=== PATIENT | female | born 1980 | race Caucasian/White ===

== ENCOUNTER → 2017-09-28 | Outpatient (CLI) | payer MEDICAID ==
[2017-09-28 10:17] LABS: ALT 33 U/L (9-52); AST 23 U/L (14-36); Albumin 4.2 g/dL (3.5-5.0); Alkaline Phosphatase 64 U/L (38-126); Anion Gap 9 mmol/L; Blood Urea Nitrogen 9 mg/dL (7-17); Calcium 9.3 mg/dL (8.4-10.2); Carbon Dioxide 28 mmol/L (22-30); Chloride 104 mmol/L (98-107); Cholesterol 222 mg/dL (<200); Glucose 97 mg/dL (74-99); HDL Cholesterol 66 mg/dL (40-60); LDL Cholesterol,Calculated 131 mg/dL (0-99); Potassium 4.6 mmol/L (3.5-5.1); Sodium 141 mmol/L (137-145); Total Bilirubin 0.3 mg/dL (0.2-1.3); Total Protein 6.8 g/dL (6.3-8.2); Triglycerides 126 mg/dL (<150)
[2017-09-28 10:23] LABS: HCT 44.6 % (34.0-46.0); HGB 14.3 gm/dL (11.4-16.0); MCH 28.5 pg (25.0-35.0); MCV 88.9 fL (80.0-100.0); Mean Platelet Volume 7.2; Platelet Count 234 k/uL (150-450); RBC 5.01 m/uL (3.80-5.40); RDW 12.9 % (11.5-15.5)
== END | disposition home or self-care (01) ==
LOC: LABWHC1 09:41
PROVIDERS: ATTEND Physician Assistant Medical
DX: Z00.00 Encounter for general adult medical examination without abnormal findings (principal)
CPT/HCPCS: 36415; 80053; 80061; 84443; 85027

== ENCOUNTER → 2018-07-03 | Outpatient (CLI) | payer MEDICAID ==
--- NOTE | 2018-07-03 10:56 | USB ---
Reason for exam: clinical finding. History: Patient is nulliparous. Family history of breast cancer in mother at age 55 and breast cancer in maternal grandmother at age 39. Took hormonal contraceptives for 21 years beginning at age 15. Indicated problem(s): non-bloody discharge in the left breast. Physical Findings: Nurse Summary:Patient complains of left breast pain/lump/discharge x 3 days, area does not feel any different than surrounding tissue (nurse cw). US Breast BILAT Right complete breast ultrasound includes all four quadrants, the retroareolar region and axilla. Finding demonstrates no cystic or solid lesion seen. Left complete breast ultrasound includes all four quadrants, the retroareolar region and axilla. Finding demonstrates no cystic or solid lesion seen. No suspicious findings. These results were verbally communicated with the patient and result sheet given to the patient on 07/03/18. ASSESSMENT: Incomplete: need additional imaging evaluation, BI-RAD 0 RECOMMENDATION: Follow-up diagnostic mammogram of both breasts.
--- NOTE | 2018-07-03 10:58 | MM ---
Reason for exam: clinical finding. History: Patient is nulliparous. Family history of breast cancer in mother at age 55 and breast cancer in maternal grandmother at age 39. Took hormonal contraceptives for 21 years beginning at age 15. Indicated problem(s): non-bloody discharge in the left breast. MG Diagnostic Mammo w CAD SHEBA Bilateral CC and MLO view(s) were taken. The breast tissue is heterogeneously dense. This may lower the sensitivity of mammography. No suspicious abnormality. These results were verbally communicated with the patient and result sheet given to the patient on 07/03/18. ASSESSMENT: Negative, BI-RAD 1 RECOMMENDATION: Routine screening mammogram of both breasts at age 41. (family history of breast cancer)
== END ==
LOC: RADUSWWP 09:13
PROVIDERS: ATTEND Nurse Practitioner Adult Health
DX: R92.8 Other abnormal and inconclusive findings on diagnostic imaging of breast (principal); N64.52 Nipple discharge; N64.4 Mastodynia; N63.10 Unspecified lump in the right breast, unspecified quadrant; N63.20 Unspecified lump in the left breast, unspecified quadrant; Z80.3 Family history of malignant neoplasm of breast
CPT/HCPCS: 77066

== ENCOUNTER → 2018-08-13 | Outpatient (CLI) | payer MEDICAID ==
--- NOTE | 2018-08-13 15:32 | XR ---
EXAMINATION TYPE: XR lumbar spine 2 or 3V DATE OF EXAM: 08/13/2018 CLINICAL HISTORY: Bilateral flank pain TECHNIQUE: Frontal and lateral images of the lumbar spine are obtained. COMPARISON: None FINDINGS: There are 5 lumbar type vertebral bodies identified. The lumbar spine shows satisfactory alignment without evidence of acute fracture or dislocation. Vertebral body heights and disk space he ights are within normal limits. There is minimal facet arthropathy at L5-S1. Very small anterior oste ophytes are seen of L4 and L5. The overlying soft tissue appears unremarkable. IMPRESSION: No acute fracture or malalignment is seen in the lumbar spine.
--- NOTE | 2018-08-13 15:35 | XR ---
EXAMINATION TYPE: XR abdomen complete w decub DATE OF EXAM: 08/13/2018 COMPARISON: NONE HISTORY: Abdominal pain TECHNIQUE: Upright, supine, and left lateral decubitus views of the abdomen were performed FINDINGS: No pneumoperitoneum is seen. Cholecystectomy clips are present. Clustered rounded calculi are present in the left upper quadrant. These could be renal calculi. There are. The 5 lumbar measuring up to 3 mm. Alternatively these could be debris within the stomach. There appears to be thickened rugal folds measuring up to 1.5 cm. No dilated large or small bowel are seen. Osseous structures are grossly int act. IMPRESSION: 1. Stomach contour is outlined by air and there appears to be thickened rugal folds. Gastritis or pep tic ulcer disease could be considered in this patient with abdominal pain. 2. Clustered calculi overlie the stomach and left renal shadow and could be within the gastric lumen or related to renal calculi. 3. Nonobstructive bowel gas pattern.
== END | disposition home or self-care (01) ==
LOC: RADXRMAIN 13:46
PROVIDERS: ATTEND Internal Medicine
DX: N20.0 Calculus of kidney (principal); M54.5 Low back pain
CPT/HCPCS: 72100; 74021

== ENCOUNTER → 2019-03-09 | Outpatient (CLI) | payer MEDICAID ==
--- NOTE | 2019-03-10 13:01 | ECHOF ---
Referral Reason:I51.7 cardio mega MEASUREMENTS -------- HEIGHT: 167.6 cm WEIGHT: 84.4 kg BP: 125/84 RVIDd: 2.6 cm (< 3.3) IVSd: 0.9 cm (0.6 - 1.1) LVIDd: 4.0 cm (3.9 - 5.3) LVPWd: 0.9 cm (0.6 - 1.1) IVSs: 1.2 cm LVIDs: 2.5 cm LVPWs: 1.3 cm LA Diam: 2.9 cm (2.7 - 3.8) LAESV Index (A-L): 20.33 ml/m Ao Diam: 2.8 cm (2.0 - 3.7) AV Cusp: 2.0 cm (1.5 - 2.6) MV EXCURSION: 16.399 mm (> 18.000) MV EF SLOPE: 135 mm/s (70 - 150) EPSS: 0.3 cm MV E Bryon: 0.92 m/s MV DecT: 192 ms MV A Bryon: 0.78 m/s MV E/A Ratio: 1.17 RAP: 5.00 mmHg RVSP: 26.13 mmHg TAPSE: 20.48 mm FINDINGS -------- Sinus rhythm. This was a technically good study. The left ventricular size is normal. Left ventricular wall thickness is normal. Overall left vent ricular systolic function is normal with, an EF between 60 - 65 %. The right ventricle is normal in size. Normal LA size by volume 22+/-6 ml/m2. The right atrium is normal in size. Interatrial and interventricular septum intact. The aortic valve is trileaflet and appears structurally normal. There is trace mitral regurgitation. Mild tricuspid regurgitation present. Right ventricular systolic pressure is normal at < 35 mmHg. There is no pulmonic regurgitation present. The aortic root size is normal. Normal inferior vena cava with normal inspiratory collapse consistent with estimated right atrial pre ssure of 5 mmHg. There is no pericardial effusion. CONCLUSIONS -------- 1. Sinus rhythm. 2. This was a technically good study. 3. The left ventricular size is normal. 4. Left ventricular wall thickness is normal. 5. Overall left ventricular systolic function is normal with, an EF between 60 - 65 %. 6. The right ventricle is normal in size. 7. Normal LA size by volume 22+/-6 ml/m2. 8. The right atrium is normal in size. 9. Interatrial and interventricular septum intact. 10. The aortic valve is trileaflet and appears structurally normal. 11. There is trace mitral regurgitation. 12. Mild tricuspid regurgitation present. 13. Right ventricular systolic pressure is normal at < 35 mmHg. 14. There is no pulmonic regurgitation present. 15. The aortic root size is normal. 16. Normal inferior vena cava with normal inspiratory collapse consistent with estimated right atrial pressure of 5 mmHg. 17. There is no pericardial effusion. [employer]: Mag Alcocer RDCS
== END | disposition home or self-care (01) ==
LOC: RADECHMAIN 16:30
PROVIDERS: ATTEND Internal Medicine
DX: I07.1 Rheumatic tricuspid insufficiency (principal)
CPT/HCPCS: 93306

== ENCOUNTER → 2020-01-25 | Outpatient (CLI) | payer MEDICAID ==
--- NOTE | 2020-01-25 13:05 | XR ---
EXAMINATION TYPE: XR foot complete LT DATE OF EXAM: 01/25/2020 COMPARISON: None HISTORY: Pain lateral foot TECHNIQUE: Three-view left foot FINDINGS: No acute fractures or dislocations are evident. There may be some mild soft tissue prominen ce laterally. Joint spaces are preserved. IMPRESSION: 1. No acute osseous abnormality. 2. Follow-up exams can be performed 7-10 days from acute trauma for continued pain.
== END | disposition home or self-care (01) ==
LOC: RADXRMAIN 12:00
PROVIDERS: ATTEND Nurse Practitioner Adult Health
DX: M79.672 Pain in left foot (principal)

== ENCOUNTER → 2022-08-01 | Outpatient (CLI) | payer MEDICAID ==
--- NOTE | 2022-08-02 09:55 | MM ---
Reason for Exam: Screening (asymptomatic). Last mammogram was performed 4 year(s) and 0 month(s) ago. Patient History: Menarche at age 15. Patient has no children. Hormonal Contraceptives for 21 years from age 15 until age 36. Maternal grandmother had breast cancer, age 39. Mother had breast cancer, age 55. Risk Values: Keke 5 year model risk: 1.0%. NCI Lifetime model risk: 17.3%. Prior Study Comparison: 07/03/2018 Bilateral Diagnostic Mammogram, [facility]. Tissue Density: The breast tissue is heterogeneously dense. This may lower the sensitivity of mammography. Findings: Analyzed By CAD. Nodular asymmetric density subareolar right MLO view remains unchanged. There is no suspicious group of microcalcifications or new suspicious mass in either breast. Overall Assessment: Negative, BI-RAD 1 Management: Screening Mammogram of both breasts in 1 year. . Patient should continue monthly self-breast exams. A clinical breast exam by your physician is recommended on an annual basis. This exam should not preclude additional follow-up of suspicious palpable abnormalities. Note on Keke scores and lifetime risk: 1. A Keke score greater than 3% is considered moderate risk. If this is the case, consider specialist referral to assess eligibility for a risk reducing agent. 2. If overall lifetime risk for the development of breast cancer is 20% or higher, the patient may qualify for future screening with alternating mammogram and breast MRI. Electronically signed and approved by: Juliette Renteria M.D. Radiologist
== END | disposition home or self-care (01) ==
LOC: RADMAMWWP 07:29
PROVIDERS: ATTEND Internal Medicine
DX: Z12.31 Encounter for screening mammogram for malignant neoplasm of breast (principal); Z80.3 Family history of malignant neoplasm of breast
CPT/HCPCS: 77063; 77067